=== PATIENT | female | born 1935 | race Caucasian/White ===

== ENCOUNTER 2016-10-04 15:52 | Emergency (ER) | payer MEDICARE ==
--- NOTE | 2016-10-04 15:59 | EDPRACDOC ---
- General Information Chief Complaint: Fall Stated Complaint: FALL Time Seen by Provider: 10/04/16 15:56 Home Medications: Home Medications Ezetimibe [Zetia] 10 mg PO QHS 04/17/16 Metoprolol Tartrate 25 mg PO BID 04/17/16 Aspirin [Aspirin EC] 325 mg PO DAILY #90 tablet. 04/24/16 Sertraline HCl 50 mg PO DAILY 05/18/16 Omeprazole 20 mg PO DAILY PRN 05/22/16 Allergies/Adverse Reactions: Allergies Allergy/AdvReac Type Severity Reaction Status Date / Time codeine Allergy Nausea/Vomi Verified 06/23/16 07:52 ting [id number] Reductase Allergy MYALGIA Verified 06/21/16 10:30 Inhibitor - History of Present Illness Onset: [employer] HPI: PT STATES SHE TRIPPED OVER [place] IN PARKING LOT OF LOCAL DRUG STORE, STRUCK HEAD ON PAVEMENT, HAS HEMATOME OF FOREHEAD, ABRASION TO NOSE, PT DENIES LOC, NO N/V, NO HEADACHE, DIZZINESS, NECK PAIN. PT DENIES CP OR SOBR. Location: Reports: Frontal Pain Quality: Reports: Mild Modifying Factors: Denies: Medication, Exposure to light, Cold therapy, Immobilization, Movement, Rest Prior work up: Denies: NO, O, CT, LP, MRI, Neurologist Relevant History of: Reports: None Associated Signs and Symptoms: Denies: Confusion, Fatigue, Facial Pain, Fever/ Chills, Flushing, Loss of Consciousness, Nausea/Vomiting, Nasal Congestion, Nasal Drainage, Numbness in Legs/Feet, Rash, Seizures, Sinus Infection, Stiff Neck, Vision Changes, Weakness ED Past Medical History - History Reviewed Yes Nurses notes reviewed and agree except as marked - Patient Medical History Neurological History: Reports: 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 Denies: Hypertension, Cancer, Stroke, Cardiac Disorders - Social Medical History Smoking Status: Former smoker ETOH: None Substance Abuse: None EDM Review of Systems - Review of Systems Constitutional: negative: Chills, Fever Eyes: negative: Blurred Vision, Double Vision Ears: negative: Drainage, Pain Throat: negative: Pain Nose: negative: Bleeding Respiratory: negative: Cough, Shortness of Breath, Wheezing Cardiovascular: negative: Chest Pain, Palpitations Gastrointestinal: negative: Diarrhea, Nausea, Pain, Vomiting Genitourinary: negative: Dysuria, Frequency Neurological: negative: Dizziness, Headache, Numbness, Weakness Musculoskeletal: No Symptoms Reported Integumentary: Wound - Physical Exam Constitutional: Alert (Awake), No apparent distress Oriented to: Time, Person, Place Last recorded Vital Signs: Oxygen Pulse Oxygen Saturation O2 Device Oxygen Flow Rate Fraction of Inspired Oxygen ( FIO2) - HEENT Head: Swelling (HEMATOMA FOREHEAD) Eye Exam: Normal (PERRL, EOMI, Sclera white) Oropharynx: Normal (Pharynx:Moist without exudate,Gums-no swelling) Tympanic Membrane: Normal ENT EAC: Normal TMJ: Normal Nose: Abrasion. negative: Bleeding Neck: Normal (FROM, trachea at midline) - Respiratory/Cardiovascular Respiratory: Normal - CTA (BBS clear to auscultation without adventitious sounds ) Cardiovascular: Normal (RRR without murmur, gallop or rub) - GI Auscultation: Normal (NABS) Palpation: Normal (Soft,No rebound or guarding, non distended) Tenderness: Non tender Chavira's Sign: Negative - Musculoskeletal Back: Normal (Non-Tender) Extremities: Normal (Normal tone, Pulses 2+ No cyanosis or edema, FROM) - Integumentary Skin: Normal, Warm, Dry Lymphatics: Normal (no adenopathy) - Neurologic Memory Impaired: Normal Motor Function: Normal (Normal tone, Pulses 2+ No cyanosis or edema, FROM) Cranial Nerve: Normal (CN II-X11 intact sensation, strength 5/5) Cerebellar: Normal Mood Description: Normal Perception: Normal - Differential Diagnosis Abrasion, Closed Head Injury, Contusion, Fracture, Other Bone, ICH, SDH, EDH - Diagnostic Imaging CT HEAD/FACE Image interpreted by: Radiologist Diagnostic Imaging Comments: CT HEAD WITHOUT CONTRAST CT MAXILLOFACIAL WITHOUT CONTRAST TECHNIQUE: Multidetector CT imaging of the head and maxillofacial structures were performed using the standard protocol without intravenous contrast. Multiplanar CT image reconstructions of the maxillofacial structures were also generated. COMPARISON: Head CT 04/20/2016 FINDINGS: CT HEAD FINDINGS Chronic white matter disease in the subcortical and periventricular white matter. Low-density in the left frontal/ parietal cortex likely represents prior MCA infarct. No evidence for acute hemorrhage, mass lesion, midline shift, hydrocephalus or new large infarct. There is a scalp hematoma along the forehead. Visualized paranasal sinuses are clear. No evidence for a calvarial fracture. CT MAXILLOFACIAL FINDINGS Normal appearance of both globes. Normal appearance of the retrobulbar regions. Visualized intracranial structures demonstrate chronic white matter changes. There is a hematoma involving the forehead and upper nose region. Mandible is intact. Mandibular condyles are located. Pterygoid plates are intact. Zygomatic arches are intact. No evidence for an acute facial bone fracture. Paranasal sinuses are clear. Degenerative changes at C1-C2. Nasal bones are intact. IMPRESSION: No acute intracranial abnormality. Evidence for chronic small vessel ischemic changes and prior infarct in the left MCA territory. Scalp hematoma involving the forehead and upper nose region. No facial bone fracture. Decision Time to Discharge: 17:34 - Departure Disposition: Home Condition: Stable Final Diagnosis: Abrasion, nose w/o infection, Accidental fall Traumatic hematoma of forehead Qualifiers: Encounter type: initial encounter Qualified Code(s): S00.83XA - Contusion of other part of head, initial encounter Instructions: RICE: Routine Care for Injuries Education/Counseling Given To: Patient Education/Counseling Given Regarding: Diagnosis, Treatment, Prognosis, Follow Up Referrals: Prabhu Nieves MD [Primary Care Provider] - One Week Additional Instructions: APPLY COLD COMPRESSES NEEDED FOR SWELLING AND PAIN, WASH WOUNDS DAILY WITH SOAP AND WATER, COVER WITH ANTIBIOTIC OINTMENT AND CLEAN BANDAGE. USE TYLENOL OR MOTRIN NEEDED FOR PAIN, RETURN TO THE ED FOR ANY WORSENING SYMPTOMS OR CONCERNS.
[2016-10-04 16:10] VITALS: TEMP 97.6; BMI 27.4
--- NOTE | 2016-10-04 16:44 | DIRPT ---
CLINICAL DATA: Fall and struck head on pavement. Hematoma to the forehead and nose abrasion. History of ovarian cancer. History of left MCA infarct. EXAM: CT HEAD WITHOUT CONTRAST CT MAXILLOFACIAL WITHOUT CONTRAST TECHNIQUE: Multidetector CT imaging of the head and maxillofacial structures were performed using the standard protocol without intravenous contrast. Multiplanar CT image reconstructions of the maxillofacial structures were also generated. COMPARISON: Head CT 04/20/2016 FINDINGS: CT HEAD FINDINGS Chronic white matter disease in the subcortical and periventricular white matter. Low-density in the left frontal/ parietal cortex likely represents prior MCA infarct. No evidence for acute hemorrhage, mass lesion, midline shift, hydrocephalus or new large infarct. There is a scalp hematoma along the forehead. Visualized paranasal sinuses are clear. No evidence for a calvarial fracture. CT MAXILLOFACIAL FINDINGS Normal appearance of both globes. Normal appearance of the retrobulbar regions. Visualized intracranial structures demonstrate chronic white matter changes. There is a hematoma involving the forehead and upper nose region. Mandible is intact. Mandibular condyles are located. Pterygoid plates are intact. Zygomatic arches are intact. No evidence for an acute facial bone fracture. Paranasal sinuses are clear. Degenerative changes at C1-C2. Nasal bones are intact. IMPRESSION: No acute intracranial abnormality. Evidence for chronic small vessel ischemic changes and prior infarct in the left MCA territory. Scalp hematoma involving the forehead and upper nose region. No facial bone fracture. Electronically Signed By: Ilan Urbina M.D. On: 10/04/2016 16:41
[2016-10-04 18:11] VITALS: BP 161/72; PULSE 81
== END 2016-10-04 18:09 | disposition home or self-care (01) ==
LOC: ED 15:52
DX: S00.31XA Abrasion of nose, initial encounter (principal); S00.83XA Contusion of other part of head, initial encounter; W10.1XXA Fall (on)(from) sidewalk curb, initial encounter
CPT/HCPCS: 70450; 70486; 99283